=== PATIENT | female | born 2000 | race Caucasian/White ===

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

== ENCOUNTER 2018-03-29 19:31 | Emergency (ER) | payer SELFPAY, OTHER ==
[2018-03-29 21:01] LABS: BASO % 0.3 % (0.0-1.0); EOS % 0.4 % (0.0-3.0); HEMATOCRIT 32.6 % (36.0-47.0); HEMOGLOBIN 11.1 g/dl (12.0-15.5); IMMATURE GRANULOCYTE % 0.3 % (0-3.0); LYMPH # 2.8 10^3/uL (1.5-6.5); LYMPH % 29.8 % (24.0-44.0); MEAN CORPUSCULAR HEMOGLOBIN 29.1 pg (27.0-33.0); MEAN CORPUSCULAR VOLUME 85.3 fl (80.0-96.0); MONO # 0.6 10^3/uL (0.0-0.8); MONO % 6.8 % (0.0-5.0); NEUTROPHILS # 5.8 10^3/uL (1.8-7.7); NEUTROPHILS % 62.4 % (36.0-66.0); PLATELET COUNT, AUTOMATED 208 10^3/uL (150-450); RED BLOOD COUNT 3.82 10^6/uL (4.00-5.40); RED CELL DISTRIBUTION WIDTH 14.4 % (11.5-14.5); WHITE BLOOD COUNT 9.2 10^3/uL (4.0-10.0)
[2018-03-29 21:36] LABS: APPEARANCE, URINE CLEAR (CLEAR); BACTERIA, URINE AUTO NEGATIVE (NEGATIVE); BILIRUBIN, URINE AUTO NEGATIVE (NEGATIVE); BLOOD, URINE BLOOD NEGATIVE (NEGATIVE); COLOR, URINE YELLOW (YELLOW); GLUCOSE, URINE (UA) AUTO NEGATIVE (NEGATIVE); KETONE, URINE AUTO NEGATIVE (NEGATIVE); LEUKOCYTE ESTERASE, URINE AUTO NEGATIVE (NEGATIVE); NITRITE, URINE AUTO NEGATIVE (NEGATIVE); PROTEIN, URINE AUTO NEGATIVE (NEGATIVE); RBC, URINE AUTO 1 /HPF (0-3); SPECIFIC GRAVITY URINE AUTO 1.012 (1.002-1.035); SQUAMOUS EPITHELIAL CELL UR AU 1 /HPF (0-6); UROBILINOGEN, URINE AUTO 0.2 mg/dL (0.0-2.0); WBC, URINE AUTO 0 /HPF (0-3)
[2018-03-29 21:43] LABS: ANION GAP 8 MEQ/L (8-16); BLOOD UREA NITROGEN 6 MG/DL (7-18); CALCIUM LEVEL 8.4 MG/DL (8.5-10.1); CARBON DIOXIDE LEVEL 25 MEQ/L (21-32); CHLORIDE LEVEL 107 MEQ/L (98-107); CREATININE FOR GFR 0.45 MG/DL (0.55-1.30); GLUCOSE, FASTING 81 MG/DL (70-100); HCG, SERUM QUANTITATIVE 41952 MIU/ML; POTASSIUM SERUM 3.9 MEQ/L (3.5-5.1); SODIUM LEVEL 140 MEQ/L (136-145)
== END 2018-03-29 23:52 | disposition home or self-care (01) ==
LOC: M ED 19:31
DX: O99.282 Endocrine, nutritional and metabolic diseases complicating pregnancy, second trimester (principal); E86.0 Dehydration; O99.89 Other specified diseases and conditions complicating pregnancy, childbirth and the puerperium; N93.9 Abnormal uterine and vaginal bleeding, unspecified; R10.2 Pelvic and perineal pain; Z3A.14 14 weeks gestation of pregnancy; Z98.890 Other specified postprocedural states
CPT/HCPCS: 76811

== ENCOUNTER → 2018-04-28 | Outpatient (REF) | payer OTHER ==
[2018-04-28 18:38] LABS: HEMATOCRIT 31.3 % (36.0-47.0); HEMOGLOBIN 10.6 g/dl (12.0-15.5); MEAN CORPUSCULAR HEMOGLOBIN 29.9 pg (27.0-33.0); MEAN CORPUSCULAR HGB CONC 33.9 g/dl (32.0-36.5); MEAN CORPUSCULAR VOLUME 88.2 fl (80.0-96.0); PLATELET COUNT, AUTOMATED 220 10^3/uL (150-450); RED BLOOD COUNT 3.55 10^6/uL (4.00-5.40); RED CELL DISTRIBUTION WIDTH 13.2 % (11.5-14.5); WHITE BLOOD COUNT 9.4 10^3/uL (4.0-10.0)
[2018-04-28 19:54] LABS: HCG, SERUM QUANTITATIVE 16773 MIU/ML
[2018-04-28 23:41] LABS: CHLAMYDIA DNA AMPLIFICATION NEGATIVE (NEGATIVE); GC DNA AMPLIFICATION NEGATIVE (NEGATIVE)
[2018-04-29 10:04] LABS: RUBELLA IgG QUALITATIVE IMMUNE (IMMUNE)
[2018-04-29 10:13] LABS: HBsAg Prenatal NEGATIVE (NEGATIVE)
[2018-04-29 10:33] LABS: HEPATITIS C VIRUS ABY INDEX 0.1 INDEX (<0.8)
[2018-04-29 10:34] LABS: HIV 1&2 SCREEN CENTAUR NEGATIVE (NEGATIVE)
== END ==
LOC: M LAB REF 16:42
DX: O36.80X0 Pregnancy with inconclusive fetal viability, not applicable or unspecified (principal); Z32.01 Encounter for pregnancy test, result positive

== ENCOUNTER → 2018-06-22 | Outpatient (CLI) | payer OTHER ==
[2018-06-22 17:04] LABS: GLUCOSE CHALLENGE TEST 1 HOUR 151 MG/DL (LESS THAN 140)
[2018-06-22 17:08] LABS: HEMATOCRIT 27.9 % (36.0-47.0); HEMOGLOBIN 9.3 g/dl (12.0-15.5); MEAN CORPUSCULAR HEMOGLOBIN 29.7 pg (27.0-33.0); MEAN CORPUSCULAR HGB CONC 33.3 g/dl (32.0-36.5); MEAN CORPUSCULAR VOLUME 89.1 fl (80.0-96.0); PLATELET COUNT, AUTOMATED 238 10^3/uL (150-450); RED BLOOD COUNT 3.13 10^6/uL (4.00-5.40); RED CELL DISTRIBUTION WIDTH 12.7 % (11.5-14.5); WHITE BLOOD COUNT 14.4 10^3/uL (4.0-10.0)
== END ==
LOC: M LAB 15:16
DX: Z34.82 Encounter for supervision of other normal pregnancy, second trimester (principal); Z36.89 Encounter for other specified antenatal screening
CPT/HCPCS: 82950

== ENCOUNTER → 2018-06-29 | Outpatient (CLI) | payer OTHER ==
[2018-06-29 09:39] LABS: GLUCOSE, FASTING 89 MG/DL (LESS THAN 95)
[2018-06-29 10:27] LABS: 1 HR GLUCOSE 166 MG/DL (LESS THAN 180)
[2018-06-29 12:31] LABS: 3 HR GLUCOSE 116 MG/DL (LESS THAN 140)
[2018-06-29 12:39] LABS: 2 HR GLUCOSE 131 MG/DL (LESS THAN 155)
== END ==
LOC: M LAB 08:07
DX: Z34.82 Encounter for supervision of other normal pregnancy, second trimester (principal); Z3A.00 Weeks of gestation of pregnancy not specified
CPT/HCPCS: 82951

== ENCOUNTER → 2018-08-25 | Outpatient (REF) | payer OTHER ==
[~2018-08-25] MED LIST: IBUP200C25 PO; KEFL500C17 PO; MACR100C43 PO; PYRI1TAB5 PO; ZOFR4TAB14 PO
== END ==
LOC: M LAB REF 14:31
PROVIDERS: ATTEND Obstetrics & Gynecology
DX: Z34.83 Encounter for supervision of other normal pregnancy, third trimester (principal)

== ENCOUNTER 2018-09-10 12:07 | Inpatient (IN) | payer OTHER ==
[2018-09-10] VITALS (49 sets, daily range): BP systolic 114–183; BP diastolic 55–94
[~2018-09-10] VITALS: Ht 162.6 cm; Wt 89.0 kg
[2018-09-10] MEDS ORDERED: OMEP10CASR PO (12:32)
[2018-09-10] MEDS ORDERED: LR 1,000 ML IV SCH (12:42)
[2018-09-10 13:23] LABS: HEMATOCRIT 25.7 % (36.0-47.0); HEMOGLOBIN 8.3 g/dl (12.0-15.5); MEAN CORPUSCULAR HEMOGLOBIN 26.7 pg (27.0-33.0); MEAN CORPUSCULAR HGB CONC 32.3 g/dl (32.0-36.5); MEAN CORPUSCULAR VOLUME 82.6 fl (80.0-96.0); PLATELET COUNT, AUTOMATED 259 10^3/uL (150-450); RED BLOOD COUNT 3.11 10^6/uL (4.00-5.40); WHITE BLOOD COUNT 11.5 10^3/uL (4.0-10.0)
[2018-09-10] MEDS ORDERED: LR 300 ML IV ONE (13:30)
[2018-09-10 13:33] LABS: ALT/SGPT 11 U/L (12-78); BILIRUBIN,TOTAL 0.3 MG/DL (0.2-1.0); LDH LACTATE DEHYDROGENASE 202 U/L (84-246); URIC ACID 3.2 MG/DL (2.6-6.0)
[2018-09-10] MEDS ORDERED: OXYTOCIN 30 UNITS IN 0.9% NaCl 500ML IV BAG (J2590) As Ordered ONE (14:08)
[2018-09-10] MEDS ORDERED: OXYTOCIN DRIP 30 UNITS in APPROPRIATE DILUENT 1 EA IV SCH ×2 (14:15→22:54)
[2018-09-10] MEDS ORDERED: FENTANYL 2MCG/ML ROPIVACAINE 0.2% IN 0.9% NACL 100ML IVBAG As Ordered ONE (16:15)
[2018-09-10] MEDS ORDERED: ONDANSETRON 4MG/2ML VIAL (J2405) IV PRN (17:30)
[2018-09-10] MEDS ORDERED: EPIDURAL COMMENT XX SCH (17:30)
[2018-09-10] MEDS ORDERED: REFRIGERATOR IV KEYS XX PRN (17:30)
[2018-09-10] MEDS ORDERED: EPIDURAL/PCA KEYS XX PRN (17:30)
[2018-09-10] MEDS ORDERED: ePHEDrine SULFATE 25 MG/5 ML(5MG/ML) SYRINGE IV PRN (17:30)
[2018-09-10] MEDS ORDERED: NALOXONE INJ 0.4 MG/1 ML VIAL (J2310) IV PRN (17:30)
[2018-09-10] MEDS ORDERED: LACTATED RINGER'S 1000 ML IV PRN (17:30)
[2018-09-10] MEDS ORDERED: diphenhydrAMINE INJ 50MG/ML VIAL (J1200) IV PRN (17:30)
[2018-09-10] MEDS ORDERED: FENTANYL/ROPIVACAINE/NACL BAG 100 ML EPIDURAL SCH (17:30)
[2018-09-10] MEDS ORDERED: LABETALOL HCL 100 MG/20 ML VIAL IV STA (21:19)
[2018-09-10] MEDS ORDERED: ANUSOL HC CREAM 30GM TOP PRN (23:00)
[2018-09-10] MEDS ORDERED: DIBUCAINE 1% OINTMENT 30GM TOP PRN (23:00)
[2018-09-10] MEDS ORDERED: METHYLERGONOVINE MALEATE 0.2 MG TAB PO PRN (23:00)
[2018-09-10] MEDS ORDERED: RHOGAM 300 MCG (1500 IU) INJ (J2790) IM SCH (23:00)
[2018-09-10] MEDS ORDERED: MEASLES,MUMPS,RUBELLA VACCINE INJ (MMR-II) (90707) SC SCH (23:00)
[2018-09-10 23:13] LABS: CORD GAS ABE A -7.2; CORD GAS ABE V -6.4; CORD GAS HCO3 A 21.9 MEQ/L; CORD GAS HCO3 V 19.9 MEQ/L; CORD GAS O2 SAT A 34.3 %; CORD GAS O2 SAT V 53.7 %; CORD GAS PCO2 A 58.1 mmHg; CORD GAS PCO2 V 42.3 mmHg; CORD GAS PH A 7.194 UNITS; CORD GAS PH V 7.291 UNITS; CORD GAS PO2 A 18.8 mmHg; CORD GAS SBC A 17.2 MEQ/L; CORD GAS SBC V 18.3 MEQ/L; CORD GAS TCO2 A 23.7 MEQ/L; CORD GAS TCO2 V 21.2 MEQ/L
[2018-09-11] VITALS (7 sets, daily range): BP systolic 135–148; BP diastolic 61–82
[2018-09-11] MEDS ORDERED: IBUPROFEN 800 MG TAB PO SCH (06:00)
[2018-09-11 07:10] LABS: HEMATOCRIT 21.8 % (36.0-47.0); HEMOGLOBIN 7.1 g/dl (12.0-15.5); MEAN CORPUSCULAR HEMOGLOBIN 27.2 pg (27.0-33.0); MEAN CORPUSCULAR HGB CONC 32.6 g/dl (32.0-36.5); MEAN CORPUSCULAR VOLUME 83.5 fl (80.0-96.0); PLATELET COUNT, AUTOMATED 197 10^3/uL (150-450); RED BLOOD COUNT 2.61 10^6/uL (4.00-5.40); WHITE BLOOD COUNT 16.7 10^3/uL (4.0-10.0)
[2018-09-11] MEDS: ACETAMINOPHEN 500 MG TAB PO PRN ×2 (07:35→13:20)
[2018-09-11] MEDS: DOCUSATE SODIUM 100 MG CAP PO SCH ×2 (07:36→21:27)
[2018-09-11] MEDS: PRENATAL VITAMINS CHEWABLE TABLET PO SCH (07:36)
[2018-09-11 07:45] LABS: ALT/SGPT 9 U/L (12-78); BILIRUBIN,TOTAL 0.5 MG/DL (0.2-1.0); CREATININE FOR GFR 0.55 MG/DL (0.55-1.30); LDH LACTATE DEHYDROGENASE 227 U/L (84-246); URIC ACID 3.4 MG/DL (2.6-6.0)
--- NOTE | 2018-09-11 08:36 | HPE ---
DATE OF ADMISSION: 09/10/2018 Dianne is a 17-year-old female, 2, para 0-0-1-0, with an estimated date of confinement (EDC) of 09/22/2017, estimated gestational age (EGA) 38-3/7 weeks gestation. She presented to the office today. Upon evaluation, she was found to have elevated blood pressure in the 160/100 range, which repeated one was 162/98, with +4 protein in her urine. At this point, a decision was made to send the patient up for admission in labor and delivery. She denies any headache. No blurred vision. She does have some right lower quadrant pain radiating down to her vagina and occasional contraction. Her labs reviewed. Blood type is AB negative, rubella immune, hepatitis negative, HIV negative, GC and chlamydia negative. 1-hour sugar testing was within normal limits. Her GBS is negative. Her past medical history reviewed. The patient denies any medical issues. PAST SURGICAL HISTORY: She has had a dilation and curettage and tonsillectomy. SOCIAL HISTORY: She is single. Denies any alcohol, drug or cigarette smoking. REVIEW OF SYSTEMS: Unremarkable. FAMILY HISTORY: Significant for breast cancer. MEDICATIONS: - vitamins ALLERGIES: NO KNOWN DRUG ALLERGIES. PHYSICAL EXAMINATION: Mildly obese female, in no acute distress. Abdomen: Soft, nontender, nondistended. Extremities: No clubbing, cyanosis or edema. Vaginal exam: 1 cm, 70% effaced, fetus at -3 station, in vertex position. Tracing reviewed; category 1 tracing. Admission lab reviewed. WBC was 11.5. Hemoglobin and hematocrit 8.3 over 25.7 with a platelet count of 259. Pre-eclamptic profile shows AST of 17, ALT of , LDH of 202, uric acid of 3.2 and a creatinine of 0.6. ASSESSMENT: 1. Intrauterine at 38-3/7 weeks gestation. 2. Preeclampsia. Cannot rule out severe preeclampsia. PLAN: Admit to labor and delivery. Patient counseled extensively. Induction process discussed with the patient. Given her gestational age and the severe blood pressure and preeclampsia, a decision was made to proceed with an induction. Patient is currently papa every 4-6 minutes. Will consider Pitocin induction with artificial rupture of membrane. Pain management also discussed. Patient opt for an epidural. At this point, we will continue to monitor her blood pressures, consider labetalol IV or magnesium sulfate for seizure prophylaxis.
--- NOTE | 2018-09-11 09:22 | DN ---
DATE OF PROCEDURE: 09/10/2018 DELIVERY NOTE: Zack is a 17-year-old female, 2, para 0-0-1-0, who is admitted at 38-3/7 weeks gestation for induction with preeclampsia. She underwent artificial rupture of membrane, followed by Pitocin augmentation. She had an epidural, became fully dilated and pushed; delivered a live male in right occiput anterior position with a nuchal tight nuchal cord times one over an intact perineum. 9 and 9. weight 6 pounds 12 ounces. Placenta delivered spontaneously intact. Three-vessel cord. Perineum, vagina and cervix inspected. No laceration noted. Estimated blood loss 250 mL. Both mother and baby in stable condition.
[2018-09-11] MEDS: IBUPROFEN 800 MG TAB PO PRN ×2 (09:44→17:21)
[2018-09-12] MEDS: IBUPROFEN 800 MG TAB PO PRN (04:56)
[2018-09-12 06:16] VITALS: BP 150/88
[2018-09-12 08:00] VITALS: BP 160/84
[2018-09-12] MEDS: PRENATAL VITAMINS CHEWABLE TABLET PO SCH (08:36)
[2018-09-12 08:37] VITALS: BP 160/84
[2018-09-12] MEDS: DOCUSATE SODIUM 100 MG CAP PO SCH (08:37)
[2018-09-12] MEDS ORDERED: INFLUENZA QUADRIVALENT PF VACCINE 0.5ML SYRINGE (90686) IM ONE ×2 (09:00→12:00)
[2018-09-12] MEDS ORDERED: LABETALOL 100 MG TAB PO SCH (09:00)
[2018-09-12 09:52] VITALS: BP 141/83
[2018-09-12 12:00] VITALS: BP 121/69
[2018-09-12] MEDS ORDERED: COLA100C5 PO (12:03)
[2018-09-12] MEDS ORDERED: IBUP-1114 PO (12:03)
[2018-09-12] MEDS ORDERED: PRENTAB9 PO (12:03)
[2018-09-12] MEDS ORDERED: MAPA500T2 PO (12:03)
[2018-09-12] MEDS ORDERED: LABE10TAB PO (13:04)
== END 2018-09-12 13:20 | disposition home or self-care (01) | DRG 807 ==
LOC: M LDI 12:07 → M OBS 09-11 00:41
PROVIDERS: ADMIT Obstetrics & Gynecology; ATTEND Obstetrics & Gynecology
PROC: 10E0XZZ Delivery of Products of Conception, External Approach (ICD-10-PCS; principal; 2018-09-10)
PROC: 10907ZC Drainage of Amniotic Fluid, Therapeutic from Products of Conception, Via Natural or Artificial Opening (ICD-10-PCS; 2018-09-10)
DX: O14.14 Severe pre-eclampsia complicating childbirth (principal); Z37.0 Single live birth; Z3A.38 38 weeks gestation of pregnancy; O69.1XX0 Labor and delivery complicated by cord around neck, with compression, not applicable or unspecified

== ENCOUNTER → 2019-04-30 | Outpatient (REF) | payer OTHER ==
[~2019-04-30] MED LIST changes: +COLA100C5 PO; +ESCI10TA2; +IBUP-1114 PO; +LABE10TAB PO; +LIDO5DIS41 TOP; +MAPA500T2 PO; +NAPR-837 PO; +OMEP10CASR PO; +PRED50TA PO; +PRENTAB9 PO; +ROBA750T4 PO
[2019-04-30 11:01] LABS: BASO % 0.5 % (0.0-1.0); EOS # 0.1 10^3/uL (0.0-0.5); EOS % 0.9 % (0.0-3.0); HEMATOCRIT 37.7 % (36.0-47.0); HEMOGLOBIN 12.5 g/dl (12.0-15.5); MEAN CORPUSCULAR HEMOGLOBIN 28.2 pg (27.0-33.0); MEAN CORPUSCULAR HGB CONC 33.2 g/dl (32.0-36.5); MEAN CORPUSCULAR VOLUME 84.9 fl (80.0-96.0); MONO # 0.6 10^3/uL (0.0-0.8); MONO % 7.8 % (0.0-5.0); NEUTROPHILS # 4.3 10^3/uL (1.5-8.5); NEUTROPHILS % 53.5 % (36.0-66.0); PLATELET COUNT, AUTOMATED 272 10^3/uL (150-450); RED BLOOD COUNT 4.44 10^6/uL (4.00-5.40)
[2019-04-30 11:42] LABS: ALBUMIN 3.8 GM/DL (3.2-5.2); ALT/SGPT 19 U/L (12-78); BILIRUBIN,TOTAL 0.4 MG/DL (0.2-1.0); BLOOD UREA NITROGEN 10 MG/DL (7-18); CALCIUM LEVEL 8.8 MG/DL (8.5-10.1); CARBON DIOXIDE LEVEL 26 MEQ/L (21-32); CHLORIDE LEVEL 105 MEQ/L (98-107); CHOLESTEROL LEVEL 103 MG/DL (<200); CHOLESTEROL RISK RATIO 2.641 (<5); CREATININE FOR GFR 0.76 MG/DL (0.55-1.30); FERRITIN 6 NG/ML (8-252); FREE T4 1.07 NG/DL (0.78-1.33); GLUCOSE, FASTING 87 MG/DL (70-100); HDL CHOLESTEROL 39 MG/DL (>40); IRON (FE) 20 UG/DL (50-170); LDL CHOLESTEROL 49 MG/DL (<100); NON-HDL-C 64 MG/DL; PERCENT SATURATION 4.8 % (13.2-45.0); POTASSIUM SERUM 4.1 MEQ/L (3.5-5.1); SODIUM LEVEL 138 MEQ/L (136-145); TOTAL IRON BINDING CAPACITY 416 UG/DL (250-450); TOTAL PROTEIN 7.4 GM/DL (6.4-8.2); TRIGLYCERIDES LEVEL 73 MG/DL (<150); VITAMIN B12 LEVEL 384 PG/ML (247-911)
== END ==
LOC: M LAB REF 10:07
PROVIDERS: ATTEND Nurse Practitioner Family
DX: Z00.01 Encounter for general adult medical examination with abnormal findings (principal); R53.83 Other fatigue

== ENCOUNTER 2019-06-20 22:12 | Emergency (ER) | payer OTHER ==
[~2019-06-20] VITALS: Ht 162.6 cm; Wt 77.7 kg
[~2019-06-20 22:12] MED LIST changes: -ESCI10TA2; -LIDO5DIS41 TOP; -NAPR-837 PO; -PRED50TA PO; -ROBA750T4 PO
[2019-06-20] MEDS ORDERED: ESCI10TA2 (22:20)
[2019-06-20] MEDS ORDERED: KETOROLAC 60 MG/2 ML VIAL (J1885) IM ONE (23:45)
[2019-06-20] MEDS ORDERED: diazePAM 10 MG TAB PO ONE (23:45)
[2019-06-20] MEDS ORDERED: LIDOCAINE 5% (LIDODERM) PATCH TD ONE (23:45)
--- NOTE | 2019-06-21 00:39 | REPVR ---
PROCEDURE INFORMATION: Exam: CT Lumbar Spine Without Contrast Exam date and time: 06/21/2019 12:27 AM Clinical history: 18 years old, female; Low back pain; Additional info: Leg numbness, PT tender TECHNIQUE: Imaging protocol: Computed tomography images of the lumbar spine without contrast. Radiation optimization: All CT scans at this facility use at least one of these dose optimization techniques: automated exposure control; mA and/or kV adjustment per patient size (includes targeted exams where dose is matched to clinical indication); or iterative reconstruction. COMPARISON: No relevant prior studies available. FINDINGS: No segmental lumbar vertebral malalignment. Vertebral body height and morphology is maintained. No acute fracture or destructive process. Intervertebral disc height is maintained for age. Mild disc bulges are suspected at L5-S1 and L4-5 No dilatation of the imaged distal abdominal aorta. No significant abnormality of the imaged retroperitoneum. IMPRESSION: No fracture or other acute abnormality involving the lumbar spine. Mild L4-5 and L5-S1 disc bulges. Consider MRI for evaluation of disc disease Electronically signed by: Stefano Casper On 06/21/2019 00:39:23 AM
[2019-06-21] MEDS ORDERED: LIDO5DIS41 TOP (01:24)
[2019-06-21] MEDS ORDERED: NAPR-837 PO (01:24)
[2019-06-21] MEDS ORDERED: PRED50TA PO (01:24)
[2019-06-21] MEDS ORDERED: ROBA750T4 PO (01:24)
[2019-06-21] MEDS ORDERED: predniSONE 20 MG TAB PO ONE (01:30)
[2019-06-21 01:33] VITALS: BP 123/64
[2019-06-21] MEDS ORDERED: **NOTE PATIENT COMMENT** MISC XX SCH (21:00)
== END 2019-06-21 01:34 | disposition home or self-care (01) ==
LOC: M ED 22:12
DX: M54.17 Radiculopathy, lumbosacral region (principal); M51.27 Other intervertebral disc displacement, lumbosacral region; G89.29 Other chronic pain; M54.5 Low back pain; Z87.820 Personal history of traumatic brain injury; Z79.899 Other long term (current) drug therapy; Z88.1 Allergy status to other antibiotic agents
CPT/HCPCS: 72131; 84702; 96372; 99283; J1885

== ENCOUNTER → 2019-07-16 | Outpatient (REF) | payer OTHER ==
[~2019-07-16] MED LIST changes: +ESCI10TA2; +LIDO5DIS41 TOP; +NAPR-837 PO; +PRED50TA PO; +ROBA750T4 PO
== END ==
LOC: M LAB REF 12:56
PROVIDERS: ATTEND Nurse Practitioner Family
DX: J02.9 Acute pharyngitis, unspecified (principal); J06.9 Acute upper respiratory infection, unspecified

== ENCOUNTER 2019-09-05 04:18 | Emergency (ER) | payer OTHER ==
[~2019-09-05] VITALS: Ht 162.6 cm; Wt 77.1 kg
[2019-09-05] MEDS ORDERED: IRON325T2 PO (04:30)
[2019-09-05 06:43] VITALS: BP 123/69
== END 2019-09-05 06:45 | disposition home or self-care (01) ==
LOC: M ED 04:18
DX: F12.921 Cannabis use, unspecified with intoxication delirium (principal); F41.9 Anxiety disorder, unspecified; F32.9 Major depressive disorder, single episode, unspecified; Z79.899 Other long term (current) drug therapy; Z88.1 Allergy status to other antibiotic agents